=== PATIENT | female | born 1945 | race African-American/Black ===

== ENCOUNTER 2018-12-12 17:52 | Inpatient (IN) | payer MEDICARE, MEDICAID ==
[~2018-12-12] VITALS: Ht 167.6 cm; Wt 77.7 kg
[2018-12-12 20:30] LABS: BASOPHILS % 1.2 % (0.0-2.0); EOSINOPHILS % 0.7 % (0.0-5.0); HEMOGLOBIN. 14.9 g/dL (12.0-16.0); LYMPHOCYTES % 37.6 % (20.0-50.0); MEAN CORPUSCULAR HEMOGLOBIN 29.6 pg (28.0-32.0); MEAN CORPUSCULAR VOLUME 91.5 fL (81.0-99.0); MONOCYTES % 10.9 % (2.0-8.0); NEUTROPHILS % 49.6 % (40.0-76.0); PLATELET 295 x1000/uL (130-400); RED BLOOD CELL COUNT 5.03 mill/uL (4.2-5.4); RED CELL DISTRIBUTION WIDTH 14.1 % (11.6-14.6)
[2018-12-12 20:36] LABS: CHLORIDE 107 mEq/L (98-107)
[2018-12-12 20:41] LABS: INR 1.1; PROTHROMBIN TIME 10.7 sec (9.1-11.1)
[2018-12-12 23:01] LABS: CLARITY URINE CLEAR (CLEAR); COLOR URINE YELLOW (YELLOW); KETONES URINE NEGATIVE (NEGATIVE); LEUKOCYTE ESTERASE URINE 1+ (NEGATIVE); NITRITE URINE NEGATIVE (NEGATIVE); OCCULT BLOOD URINE NEGATIVE (NEGATIVE); PH URINE 6.5 (4.5-8.0); PROTEIN URINE NEGATIVE (NEGATIVE); SPECIFIC GRAVITY URINE 1.008 (1.005-1.030); UROBILINOGEN URINE 0.2 E.U./dL (0.2-1.0)
[2018-12-13] MEDS ORDERED: ACETAMINOPHEN 650MG SUPP PR PRN (02:00)
[2018-12-13] MEDS ORDERED: LORAZEPAM 2MG/ML CPJ IV PRN (02:00)
[2018-12-13] MEDS ORDERED: HYDROMORPHONE HCL/PF 2MG/ML CPJ IV PRN (02:00)
[2018-12-13] MEDS ORDERED: ONDANSETRON HCL 4MG/2ML INJ IV PRN (02:00)
[2018-12-13 03:50] VITALS: BP 124/63
[2018-12-13] MEDS: DEXT 5%/0.45% NACL 1000ML 1,000 ML IV SCH ×2 (04:49→20:36)
[2018-12-13] MEDS ORDERED: LEVOFLOXACIN 500MG PREMIX 100 ML IV SCH (05:00)
[2018-12-13 05:17] VITALS: BP 124/63
[2018-12-13] MEDS ORDERED: ACET-2853 PO (05:37)
[2018-12-13] MEDS ORDERED: ENOX40DI8 SQ (07:37)
[2018-12-13] MEDS ORDERED: INSU100C6 SQ (07:37)
[2018-12-13] MEDS ORDERED: GUAI237L83 MT (07:37)
[2018-12-13] MEDS ORDERED: ASA5EC MT (07:37)
[2018-12-13] MEDS ORDERED: BLOO-1686 MC (07:37)
[2018-12-13] MEDS ORDERED: PANT40TA4 MT (07:41)
[2018-12-13] MEDS ORDERED: ZOLP5TAB8 MT (07:41)
[2018-12-13] MEDS ORDERED: [UNRECOGNIZED DRUG - CODE] IV (07:41)
[2018-12-13 08:00] VITALS: BP 134/55
[2018-12-13] MEDS: ENOXAPARIN 40MG/0.4ML SYR SUBCUT SCH (08:56)
[2018-12-13] MEDS ORDERED: DEXTROSE 50% WATER 50ML SYRINGE IV PRN (11:30)
[2018-12-13] MEDS ORDERED: DIATR MEGLU/DIATRIZOATE SOLN 30ML PO NR (12:00)
[2018-12-13] MEDS: BLOOD SUGAR DIAGNOSTIC STRIP TEST SCH ×3 (12:10→20:42)
[2018-12-13 12:15] VITALS: BP 127/60
[2018-12-13] MEDS: INSULIN LISPRO 100 UNITS/ML SUBCUT SCH ×3 (12:40→20:43)
[2018-12-13] MEDS ORDERED: DIATR MEGLU/DIATRIZOATE SOLN 30ML ONE (12:42)
[2018-12-13 16:27] VITALS: BP 123/64
[2018-12-13 20:00] VITALS: BP 145/64
[2018-12-14] VITALS: BP 124/63
[2018-12-14 04:00] VITALS: BP 126/68
[2018-12-14] MEDS ORDERED: LEVOFLOXACIN 500MG PREMIX 100 ML IV SCH (06:00)
[2018-12-14] MEDS: DEXT 5%/0.45% NACL 1000ML 1,000 ML IV SCH (06:35)
[2018-12-14] MEDS: INSULIN LISPRO 100 UNITS/ML SUBCUT SCH ×2 (06:51→12:17)
[2018-12-14] MEDS: BLOOD SUGAR DIAGNOSTIC STRIP TEST SCH ×2 (06:51→12:17)
[2018-12-14 08:00] VITALS: BP 151/71
[2018-12-14] MEDS: ENOXAPARIN 40MG/0.4ML SYR SUBCUT SCH (08:27)
[2018-12-14 09:23] LABS: BASOPHILS % 0.8 % (0.0-2.0); HEMATOCRIT. 41.2 % (36.0-48.0); HEMOGLOBIN. 13.6 g/dL (12.0-16.0); LYMPHOCYTES % 38.2 % (20.0-50.0); MEAN CORPUSCULAR HEMOGLOBIN 30.1 pg (28.0-32.0); MEAN CORPUSCULAR VOLUME 90.8 fL (81.0-99.0); MONOCYTES % 7.3 % (2.0-8.0); NEUTROPHILS % 52.7 % (40.0-76.0); PLATELET 270 x1000/uL (130-400); RED BLOOD CELL COUNT 4.54 mill/uL (4.2-5.4)
[2018-12-14 09:43] LABS: CHLORIDE 108 mEq/L (98-107)
[2018-12-14 12:41] VITALS: BP 134/77
[2018-12-14 14:45] VITALS: BP 134/77
[2018-12-14 16:10] VITALS: BP 118/47
[2018-12-14] MEDS ORDERED: ATORVASTATIN CALCIUM 20MG TABLET PO SCH (21:00)
== END 2018-12-14 18:24 | DRG 920 ==
LOC: ER 17:52 → 8WST 23:50 → ENRESERV 12-13 01:44
PROVIDERS: ADMIT Hospitalist; ATTEND Hospitalist
PROC: 0D20XUZ Change Feeding Device in Upper Intestinal Tract, External Approach (ICD-10-PCS; principal; 2018-12-13)
DX: T85.528A Displacement of other gastrointestinal prosthetic devices, implants and grafts, initial encounter (principal); N39.0 Urinary tract infection, site not specified; M20.42 Other hammer toe(s) (acquired), left foot; M21.612 Bunion of left foot; E11.9 Type 2 diabetes mellitus without complications; F03.90 Unspecified dementia, unspecified severity, without behavioral disturbance, psychotic disturbance, mood disturbance, and anxiety; I10 Essential (primary) hypertension; Y83.3 Surgical operation with formation of external stoma as the cause of abnormal reaction of the patient, or of later complication, without mention of misadventure at the time of the procedure; Y92.89 Other specified places as the place of occurrence of the external cause; Z86.73 Personal history of transient ischemic attack (TIA), and cerebral infarction without residual deficits
CPT/HCPCS: 36415; 43760; 71045; 74021; 82962; 83605; 84145; 87077; 87186; 87804; 93970; 96365; 99285; J1650; J1956; Q9963; A4315